=== PATIENT | male | born 1950 | race Caucasian/White ===

== ENCOUNTER → 2017-12-20 | Day surgery (SDC) | payer MEDICARE, OTHER ==
[~2017-12-20] VITALS: Ht 182.9 cm; Wt 122.0 kg
[~2017-12-20] MED LIST: ALBU2TAB4 PO; ASPI81TA27 PO; ATOR40TA52 PO; BUDE0.253 IN; CARV3.1240 PO; FERR18TA2 PO; LIDOCAINE 2%HCL (LOCAL ANESTH.) INJ 20ML MDV ONE; LISI2.5T47 PO; MIDAZOLAM HCL 1MG/1ML-2 ML VIAL ONE; TIOTCAP IN; fentaNYL CITRATE 100 MCG/2 ML VL ONE
== END | disposition home or self-care (01) ==
LOC: CATH 07:08
PROVIDERS: ATTEND Specialist
DX: R55 Syncope and collapse (principal); E66.9 Obesity, unspecified; Z68.36 Body mass index [BMI] 36.0-36.9, adult; I10 Essential (primary) hypertension; E78.5 Hyperlipidemia, unspecified; I25.2 Old myocardial infarction; J44.9 Chronic obstructive pulmonary disease, unspecified
CPT/HCPCS: 93619; 93623; C1894; J1644; J2250; J3010; J7030; 99152; 99153